=== PATIENT | female | born 1985 | race Caucasian/White ===

== ENCOUNTER 2019-10-15 20:41 | Inpatient (IN) | payer OTHER ==
[2019-10-15 20:50] VITALS: BMI 25.7
[2019-10-15] MEDS ORDERED: SODIUM CHLORIDE 0.9% 1000 ML INFUS.BAG IV ONE (21:45)
--- NOTE | 2019-10-15 21:56 | PDOC ---
History of Present Illness - General Chief Complaint: Pain, Acute Stated Complaint: ABD/ BACK PAIN Time Seen by Provider: 10/15/19 21:07 History Source: Spouse Exam Limitations: Language Barrier - History of Present Illness Initial Comments: Kathy Galindo is a 34 F with no known significant PMH, [id number], 1 ectopic, 14 weeks , LMP july 08, presents with RLQ pain for 1 day. Patient reports that the pain started this morning suddenly, episodic in nature, sharp pain, 8/10, radiating to the right flank and back, worse with any movements, non relieving. 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 She was told that the antibiotic was not helping her and changed to a stronger antibiotic(does not know the name), but she did not take the new antibiotic. Patient denies any nausea, vomiting, fever, chills, chest pain, SOB, edema, vaginal discharge/bleeding, dysuria, hematuria, constipation, diarrhea, weakness, or focal neurological deficits. 10/15/19 21:46 Past History - Travel History Traveled outside of the country in the last 30 days: No - Medical History Allergies/Adverse Reactions: Allergies Allergy/AdvReac Type Severity Reaction Status Date / Time No Known Allergies Allergy Verified 08/22/19 17:08 Home Medications: Ambulatory Orders NK [No Known Home Medication] 10/16/19 COPD: No - Surgical History Abdominal Surgery: Yes ( x1) Cholecystectomy: Yes - Reproductive History Is Patient Now?: Yes - Psycho-Social/Smoking History Smoking History: Never smoked - Substance Abuse Hx (Audit-C & DAST Scrn) How often the patient has a drink containing alcohol: Never Score: In Men: 4 or > Positive; In Women: 3 or > Positive: 0 Screen Result (Pos requires Nsg. Audit-10AR): Negative In the last yr the pt used illegal drug/Rx for NonMed reason: No Score: Yes response is considered Positive: 0 Screen Result (Positive result requires Nsg. DAST-10): Negative Review of Systems - Review of Systems Able to Perform ROS?: Yes Is the patient limited Greenlandic proficient: Yes Constitutional: No: Chills, Fever, Weakness HEENTM: No: Blurred Vision, Throat Pain, Throat Swelling, Difficulty Swallowing Respiratory: No: Cough, Shortness of Breath Cardiac (ROS): No: Chest Pain, Edema, Palpitations, Syncope ABD/GI: No: Constipated, Diarrhea, Nausea, Vomiting : Yes: Flank Pain. No: Burning, Dysuria, Discharge, Hematuria Musculoskeletal: Yes: Back Pain (lower back pain) Integumentary: No: Change in Color *Physical Exam - Vital Signs Last Vital Signs Temp Pulse Resp BP Pulse Ox 97.3 F L 90 19 113/95 99 10/15/19 20:44 10/15/19 20:44 10/15/19 20:44 10/15/19 20:44 10/15/19 20:44 - Physical Exam General Appearance: No: Apparent Distress HEENT: positive: EOMI, JARET. negative: Nasal Congestion, Rhinorrhea Neck: positive: Supple. negative: Tender, Carotid bruit Respiratory/Chest: positive: Lungs Clear, Normal Breath Sounds. negative: Respiratory Distress, Crackles, Rales, Rhonchi Cardiovascular: positive: Regular Rhythm, Regular Rate, S1, S2. 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 - CBC, CMP - UA, Urine culture - IVF NS 100mls - Kidney/renal US - Transvaginal US preg 10/15/19 22:00 Discharge - Discharge Information Problems reviewed: Yes Clinical Impression/Diagnosis: UTI (urinary tract infection) during , Pyelonephritis Condition: Stable - Follow up/Referral - Patient Discharge Instructions - Post Discharge Activity
[2019-10-15 22:06] LABS: BASO % 0.3 % (0-2.0); EOS % 0.5 % (0-4.5); HEMATOCRIT 36.5 % (32.4-45.2); HEMOGLOBIN 12.8 GM/dL (10.7-15.3); LYMPH % 20.2 % (8-40); MCH 32.5 pg (25.7-33.7); MCHC 35.1 g/dl (32.0-36.0); MEAN CELL VOLUME 92.6 fl (80-96); MEAN PLT VOLUME 9.6 fl (7.5-11.1); MONO % 9.3 % (3.8-10.2); NEUT % 69.7 % (42.8-82.8); PLATELET COUNT 184 K/MM3 (134-434); RBC 3.94 M/mm3 (3.60-5.2); RDW 13.3 % (11.6-15.6); WHITE BLOOD COUNT 7.5 K/mm3 (4.0-10.0)
[2019-10-15 22:11] LABS: EPI CELLS >36 /uL (0-25.1); HYALINE CASTS 3 /uL (0-3.1); URINE APPEARANCE CLOUDY; URINE BACTERIA 1243 /uL (0-1359); URINE BILIRUBIN NEGATIVE (NEGATIVE); URINE COLOR YELLOW; URINE GLUCOSE (UA) NEGATIVE (NEGATIVE); URINE KETONE NEGATIVE (NEGATIVE); URINE LEUK ESTERASE 1+ (NEGATIVE); URINE NITRITE NEGATIVE (NEGATIVE); URINE PROTEIN NEGATIVE (NEGATIVE); URINE RBC 41 /uL (0-23.9); URINE UROBILINOGEN 0.2 mg/dL (0.2-1.0); URINE WBC 118 /uL (0-25.8)
[2019-10-15] MEDS ORDERED: CEFTRIAXONE 1 GM in DEXTROSE 5%-WATER - 100 ML IVPB ONE (22:30)
[2019-10-15] MEDS ORDERED: CEFTRIAXONE 1 GM/50 ML BAG ONE (22:33)
[2019-10-15 22:39] LABS: BILIRUBIN,TOTAL 0.2 mg/dL (0.2-1); BLOOD UREA NITROGEN 5.8 mg/dL (7-18); CALCIUM 9.2 mg/dL (8.5-10.1); CREATININE 0.5 mg/dL (0.55-1.3); POTASSIUM 3.6 mmol/L (3.5-5.1); TOT PROT 6.4 g/dl (6.4-8.2)
--- NOTE | 2019-10-16 00:15 | PDOC ---
Documentation entered by Adele Ruth SCRIBE, acting as scribe for Radha Aranda DO. Radha Aranda DO: This documentation has been prepared by the Faraz shepard Brenda, SCRIBE, under my direction and personally reviewed by me in its entirety. I confirm that the documentation accurately reflects all work, treatment, procedures, and medical decision making performed by me. Attending Attestation - Resident Resident Name: Lynn Abdi - ED Attending Attestation I have performed the following: I have examined & evaluated the patient, The case was reviewed & discussed with the resident, I agree w/resident's findings & plan, Exceptions are as noted - HPI HPI: 10/15/19 22:58 The patient is a 34 year old female (A5), 1 ectopic with no significant PMH who presents to the emergency department for evaluation of 1 day of sudden onset right lower quadrant pain. Patient notes that the pain began this morning and was relieved with tyelenol but then returned at 6:00pm.Patient notes that the pain is sharp 8/10 and radiating to the right flank and back, and is worsened by movements. Reports being treated with a 5 day course of penicillins last week for an UTI by her PAD MACHINE OFFBEARER. The patient denies chest pain, shortness of breath, headache and dizziness. Denies fever, chills, cough, nausea, vomiting, diarrhea and constipation. Denies dysuria, frequency, urgency and hematuria. Denies history of kidney stones. Allergies: NKDA PCP: Hi Deleon - Physicial Exam PE: 10/15/19 23:04 GENERAL: Awake, alert, and fully oriented, in no acute distress HEAD: No signs of trauma EYES: PERRLA, EOMI, sclera anicteric, conjunctiva clear ENT: Auricles normal inspection, hearing grossly normal, nares patent, oropharynx clear without exudates. Moist mucosa NECK: Normal ROM, supple, no lymphadenopathy, JVD, or masses LUNGS: Breath sounds equal, clear to auscultation bilaterally. No wheezes, and no crackles HEART: Regular rate and rhythm, normal S1 and S2, no murmurs, rubs or gallops ABDOMEN: (+) Right flank tenderness to palpation. Soft, normoactive bowel sounds. No guarding, no rebound. No masses. No CVA tenderness. EXTREMITIES: Normal range of motion, no edema. No clubbing or cyanosis. No cords, erythema, or tenderness NEUROLOGICAL: Cranial nerves II through XII grossly intact. Normal speech, normal gait SKIN: Warm, Dry, normal turgor, no rashes lesions noted. - Medical Decision Making 10/16/19 00:09 a/p: at 14 weeks gestation with dysuria, urinary freq -pt with R flank pain -was on penicillin for 5 days, finished recently -concern for persistent uti despite abx -will send labs, renal ultrasound -ultrasound of the fetus -will send labs 10/16/19 00:13 no f/c -iup with fhr 148 pending official ultrasound read -pt with uti on labs no fevers no elevated wbc 10/16/19 00:13 iv abx ordered will need admission for failed outpt abx 10/16/19 00:19 normal renal ultrasound 10/16/19 00:22 microblog sent for admission to [facility] Discharge - Discharge Information Problems reviewed: Yes Clinical Impression/Diagnosis: UTI (urinary tract infection) during , Pyelonephritis Condition: Stable - Admission Yes - Follow up/Referral - Patient Discharge Instructions - Post Discharge Activity
--- NOTE | 2019-10-16 00:20 | PDOC ---
*Physical Exam - Vital Signs Last Vital Signs Temp Pulse Resp BP Pulse Ox 97.3 F L 90 19 113/95 99 10/15/19 20:44 10/15/19 20:44 10/15/19 20:44 10/15/19 20:44 10/15/19 20:44 ED Treatment Course - LABORATORY CBC & Chemistry Diagram: 10/15/19 21:50 10/15/19 21:50 - ADDITIONAL ORDERS Additional order review: Laboratory Results 10/15/19 10/15/19 10/15/19 22:10 21:50 21:48 Sodium 140 Potassium 3.6 Chloride 108 H Carbon Dioxide 25 Anion Gap 6 L BUN 5.8 L Creatinine 0.5 L Est GFR (CKD-EPI)AfAm 147.38 Est GFR (CKD-EPI)NonAf 127.16 Random Glucose 104 Calcium 9.2 Total Bilirubin 0.2 AST 20 ALT 24 Alkaline Phosphatase 65 Total Protein 6.4 Albumin 3.0 L Beta HCG, Quant 26285.8 Urine Color Yellow Urine Appearance Cloudy Urine pH 6.0 Ur Specific [place] 1.014 Urine Protein Negative Urine Glucose (UA) Negative Urine Ketones Negative Urine Blood Negative Urine Nitrite Negative Urine Bilirubin Negative Urine Urobilinogen 0.2 Ur Leukocyte Esterase 1+ H Urine WBC (Auto) 118 Urine RBC (Auto) 41 Urine Casts (Auto) 3 U Epithel Cells (Auto) >36 Urine Bacteria (Auto) 1243 Blood Type A POSITIVE Antibody Screen Negative 10/15/19 21:50 RBC 3.94 MCV 92.6 MCHC 35.1 RDW 13.3 MPV 9.6 Neutrophils % 69.7 Lymphocytes % 20.2 D Monocytes % 9.3 Eosinophils % 0.5 Basophils % 0.3 - Medications Given in the ED: ED Medications Discontinued Medications Generic Name Dose Route Start Last Admin Trade Name Freq PRN Reason Stop Dose Admin Ceftriaxone Sodium 1 gm/ 100 mls @ 200 mls/hr 10/15/19 22:30 10/15/19 22:44 Dextrose IVPB 10/15/19 22:59 200 mls/hr ONCE ONE Administration Sodium Chloride 1,000 ml 10/15/19 21:45 10/15/19 21:52 Normal Saline - IV 10/15/19 21:46 1,000 ml ONCE ONE Administration Medical Decision Making - Medical Decision Making 10/16/19 00:10 34 F with no known significant PMH, [id number], 1 ectopic, 14 weeks , LMP july 08, presents with RLQ pain for 1 day. Treated with PCN x5 days for UTI. PE notable for suprapubic and CVA tenderness. Labs notable for UTI. [] kidney and transvaginal US preg to r/o infected stone, abnormalities Needs rocephin and admission for UTI failing outpatient abx. PCP - [facility] US: normal kidneys Transvaginal US: [id number] no abnormalities Admit Discharge - Discharge Information Problems reviewed: Yes Clinical Impression/Diagnosis: UTI (urinary tract infection) during , Pyelonephritis Condition: Stable - Admission Yes - Follow up/Referral - Patient Discharge Instructions - Post Discharge Activity
--- NOTE | 2019-10-16 01:28 | PN ---
Teaching Attending Note Name of Resident: Alysia Sorensen ATTENDING PHYSICIAN STATEMENT I saw and evaluated the patient. I reviewed the resident's note and discussed the case with the resident. I agree with the resident's findings and plan as documented. SUBJECTIVE: 34 years old F ( A5) with no significant past medical history presented to hospital with sudden onset right lower quadrant pain radiating ti R sided back. Pain started this morning, intermittent, partially relieved by tylenol. she also c/o dysuria and chills for the same duration. She had UTI She denies nausea,vomiting,fever. OBJECTIVE: Last Vital Signs Temp Pulse Resp BP Pulse Ox 97.3 F L 90 19 113/95 99 10/15/19 20:44 10/15/19 20:44 10/15/19 20:44 10/15/19 20:44 10/15/19 20:44 GENERAL: Awake, alert, and fully oriented, in no acute distress HEAD: No signs of trauma EYES: PERRLA, EOMI, sclera anicteric, conjunctiva clear ENT: Auricles normal inspection, hearing grossly normal, nares patent, oropharynx clear without exudates. Moist mucosa NECK: Normal ROM, supple, no lymphadenopathy, JVD, or masses LUNGS: Breath sounds equal, clear to auscultation bilaterally. No wheezes, and no crackles HEART: Regular rate and rhythm, normal S1 and S2, no murmurs, rubs or gallops ABDOMEN: . Soft,RLQ tenderness with R CVA tenderness normoactive bowel sounds. No guarding, no rebound. No masses. No CVA tenderness. EXTREMITIES: Normal range of motion, no edema. No clubbing or cyanosis. No cords, erythema, or tenderness NEUROLOGICAL: Cranial nerves II through XII grossly intact. Normal speech, normal gait SKIN: Warm, Dry, normal turgor, no rashes lesions noted. ASSESSMENT AND PLAN: UTI in possible R pyelonephritis Admit to floor IV hydration IV ceftriaxone 1 gram daily urine culture blood culture renal sono done. follow official report ALL SOURCE COLLECTION MANAGER consult as she is Resume home meds Analgesia when needed - tylenol DVT ppx
[2019-10-16] MEDS ORDERED: ACETAMINOPHEN 325 MG TABLET (FP) PO PRN (01:56)
[2019-10-16] MEDS ORDERED: SODIUM CHLORIDE 1,000 ML IV SCH (02:00)
--- NOTE | 2019-10-16 02:21 | PN ---
Physical Exam: SUBJECTIVE: Patient seen and examined OBJECTIVE: Vital Signs Period Temp Pulse Resp BP Sys/Thomas Pulse Ox Last 24 Hr 97.3 F 90 19 113/95 99 GENERAL: The patient is awake, alert, and fully oriented, in obvious painful distress. HEAD: Normal with no signs of trauma. EYES:EOMI, sclera anicteric, conjunctiva clear. ENT: Ears normal NECK: full range of motion, supple, no lymphadenopathy LUNGS: vesicular Breath sounds equal and b/l, clear to auscultation bilaterally, no wheezes, no crackles,no obvious sign of respiratory distress HEART: Regular rate and rhythm, S1, S2 without murmur, rub or gallop. ABDOMEN: Soft, normoactive bowel sounds, Rt. iliac and CVA tenderness EXTREMITIES: 2+ pulses, warm, well-perfused, no edema. NEUROLOGICAL: Cranial nerves II through XII grossly intact. Normal speech PSYCH: Normal mood, normal affect. SKIN: Warm, dry, normal turgor, no rashes or lesions noted Laboratory Results - last 24 hr 10/15/19 10/15/19 10/15/19 21:48 21:50 21:50 WBC 7.5 RBC 3.94 Hgb 12.8 Hct 36.5 D MCV 92.6 MCH 32.5 MCHC 35.1 RDW 13.3 Plt Count 184 D MPV 9.6 Absolute Neuts (auto) 5.2 Neutrophils % 69.7 Lymphocytes % 20.2 D Monocytes % 9.3 Eosinophils % 0.5 Basophils % 0.3 Nucleated RBC % 0 Sodium 140 Potassium 3.6 Chloride 108 H Carbon Dioxide 25 Anion Gap 6 L BUN 5.8 L Creatinine 0.5 L Est GFR (CKD-EPI)AfAm 147.38 Est GFR (CKD-EPI)NonAf 127.16 Random Glucose 104 Calcium 9.2 Total Bilirubin 0.2 AST 20 ALT 24 Alkaline Phosphatase 65 Total Protein 6.4 Albumin 3.0 L Beta HCG, Quant 03785.8 Urine Color Yellow Urine Appearance Cloudy Urine pH 6.0 Ur Specific [place] 1.014 Urine Protein Negative Urine Glucose (UA) Negative Urine Ketones Negative Urine Blood Negative Urine Nitrite Negative Urine Bilirubin Negative Urine Urobilinogen 0.2 Ur Leukocyte Esterase 1+ H Urine WBC (Auto) 118 Urine RBC (Auto) 41 Urine Casts (Auto) 3 U Epithel Cells (Auto) >36 Urine Bacteria (Auto) 1243 Blood Type Antibody Screen 10/15/19 22:10 WBC RBC Hgb Hct MCV MCH MCHC RDW Plt Count MPV Absolute Neuts (auto) Neutrophils % Lymphocytes % Monocytes % Eosinophils % Basophils % Nucleated RBC % Sodium Potassium Chloride Carbon Dioxide Anion Gap BUN Creatinine Est GFR (CKD-EPI)AfAm Est GFR (CKD-EPI)NonAf Random Glucose Calcium Total Bilirubin AST ALT Alkaline Phosphatase Total Protein Albumin Beta HCG, Quant Urine Color Urine Appearance Urine pH Ur Specific [place] Urine Protein Urine Glucose (UA) Urine Ketones Urine Blood Urine Nitrite Urine Bilirubin Urine Urobilinogen Ur Leukocyte Esterase Urine WBC (Auto) Urine RBC (Auto) Urine Casts (Auto) U Epithel Cells (Auto) Urine Bacteria (Auto) Blood Type A POSITIVE Antibody Screen Negative Active Medications Generic Name Dose Route Start Last Admin Trade Name Freq PRN Reason Stop Dose Admin Acetaminophen 650 mg 10/16/19 01:56 Tylenol - PO Q4H PRN PAIN LEVEL 1-5 Heparin Sodium (Porcine) 5,000 unit 10/16/19 02:00 Heparin - SQ Q8H-IV ELAINE Sodium Chloride 1,000 mls @ 42 mls/hr 10/16/19 02:00 Normal Saline - IV ASDIR ELAINE ASSESSMENT/PLAN: # RIGHT PYELONEPHRITIS Dysuria RLQ pain radiating to the back Hx of UTI 6 weeks ago +Rt CVA tenderness Admit med surg IV ceftriaxone 1g x 7-10days Urine culture stat Blood culture Renal US Gentle hydration N/S 42cc/hr Tylenol 650 prn on pain scale 1-5 Repeat urine culture 1-2 weeks after treatment to confirm organism eradication OBGYN consult # Possible Renal stones Cyesis 14wks GA Rt. lower quadrant pain Hx of gallstones in childhood hX Recurrent UTI Dysuria ATTENDING PHYSICIAN STATEMENT I saw and evaluated the patient. I reviewed the resident's note and discussed the case with the resident. I agree with the resident's findings and plan as documented. SUBJECTIVE: OBJECTIVE: ASSESSMENT AND PLAN:
[2019-10-16] MEDS ORDERED: ONDANSETRON 4 MG/2 ML VIAL IVPUSH ONE (02:53)
--- NOTE | 2019-10-16 06:02 | HP ---
CHIEF COMPLAINT: RLQ PAIN X 3Days PCP: Cary Bates HISTORY OF PRESENT ILLNESS: Patient is Aborta 6 at 14wks of cyesis with a past medical hx of UTI rx with penicillin 6weeks ago and now presenting with RLQ x 3days. It was gradual in onset, worsened yesterday, mildly relived by tylenol, sharp in nature, radiates to the rt flank with 8/10 severity. There is a hx of UTI 6weeks ago that was treated with penicillin by her gage maker and a hx of gall bladder stones in childhood(11yrs of age). There is associated dysuria and chills but no hematuria, urgency, passage of stones. However, patient deniesconstipation, N/V/diarrhea , foul smelling greasy stool,jaundice, bone or muscle pain, chest pain, sob, cough, TINEO, dizziness. ER course was notable for: (1) Ceftraxione 1g stat (2) IVFN/S (3) Renal USS (4)Transvirginal uss to confirm status REVIEW OF SYSTEMS: Negative except as above Recent Travel: NONE PAST MEDICAL HISTORY:Depression, not currently on meds, was treated in the past PAST SURGICAL HISTORY: Gall bladder surg at 11yrs of age FHx: DM in her father Social History: Smoking: None Alcohol:None Drugs:None Allergies: None known to food, meds or late Gynae hx: LMP: A6 with 1 ectopic. Attending care with an OBGYN Hx of STD: None Sexually active with one partner, no contraceptive use Insurance: Yes Immunization: Not sure of her immunization hx Vital Signs - 24 hr 10/15/19 10/16/19 10/16/19 20:44 02:35 02:54 Temperature 97.3 F L 97.6 F Pulse Rate 90 71 Pulse Rate [ 80 Apical] Respiratory 19 18 16 Rate Blood Pressure 113/95 110/73 Blood Pressure 110/80 [Left Arm] O2 Sat by Pulse 99 99 97 Oximetry (%) PHYSICAL EXAMINATION: GENERAL: The patient is awake, alert, and fully oriented, in obvious painful distress. HEAD: Normal with no signs of trauma. EYES:EOMI, sclera anicteric, conjunctiva clear. ENT: Ears normal NECK: full range of motion, supple, no lymphadenopathy LUNGS: vesicular Breath sounds equal and b/l, clear to auscultation bilaterally, no wheezes, no crackles,no obvious sign of respiratory distress HEART: Regular rate and rhythm, S1, S2 without murmur, rub or gallop. ABDOMEN: Soft, normoactive bowel sounds, Rt. iliac and CVA tenderness EXTREMITIES: 2+ pulses, warm, well-perfused, no edema. NEUROLOGICAL: Cranial nerves II through XII grossly intact. Normal speech PSYCH: Normal mood, normal affect. SKIN: Warm, dry, normal turgor, no rashes or lesions noted Laboratory Results - last 24 hr 10/15/19 10/15/19 10/15/19 21:48 21:50 21:50 WBC 7.5 RBC 3.94 Hgb 12.8 Hct 36.5 D MCV 92.6 MCH 32.5 MCHC 35.1 RDW 13.3 Plt Count 184 D MPV 9.6 Absolute Neuts (auto) 5.2 Neutrophils % 69.7 Lymphocytes % 20.2 D Monocytes % 9.3 Eosinophils % 0.5 Basophils % 0.3 Nucleated RBC % 0 Sodium 140 Potassium 3.6 Chloride 108 H Carbon Dioxide 25 Anion Gap 6 L BUN 5.8 L Creatinine 0.5 L Est GFR (CKD-EPI)AfAm 147.38 Est GFR (CKD-EPI)NonAf 127.16 Random Glucose 104 Calcium 9.2 Total Bilirubin 0.2 AST 20 ALT 24 Alkaline Phosphatase 65 Total Protein 6.4 Albumin 3.0 L Beta HCG, Quant 89067.8 Urine Color Yellow Urine Appearance Cloudy Urine pH 6.0 Ur Specific [place] 1.014 Urine Protein Negative Urine Glucose (UA) Negative Urine Ketones Negative Urine Blood Negative Urine Nitrite Negative Urine Bilirubin Negative Urine Urobilinogen 0.2 Ur Leukocyte Esterase 1+ H Urine WBC (Auto) 118 Urine RBC (Auto) 41 Urine Casts (Auto) 3 U Epithel Cells (Auto) >36 Urine Bacteria (Auto) 1243 Blood Type Antibody Screen 10/15/19 22:10 WBC RBC Hgb Hct MCV MCH MCHC RDW Plt Count MPV Absolute Neuts (auto) Neutrophils % Lymphocytes % Monocytes % Eosinophils % Basophils % Nucleated RBC % Sodium Potassium Chloride Carbon Dioxide Anion Gap BUN Creatinine Est GFR (CKD-EPI)AfAm Est GFR (CKD-EPI)NonAf Random Glucose Calcium Total Bilirubin AST ALT Alkaline Phosphatase Total Protein Albumin Beta HCG, Quant Urine Color Urine Appearance Urine pH Ur Specific [place] Urine Protein Urine Glucose (UA) Urine Ketones Urine Blood Urine Nitrite Urine Bilirubin Urine Urobilinogen Ur Leukocyte Esterase Urine WBC (Auto) Urine RBC (Auto) Urine Casts (Auto) U Epithel Cells (Auto) Urine Bacteria (Auto) Blood Type A POSITIVE Antibody Screen Negative ASSESSMENT/PLAN: Patient is Aborta 6 at 14wks of cyesis with a past medical hx of UTI rx with penicillin 6weeks ago and now presenting with RLQ x 3days. # RIGHT PYELONEPHRITIS Dysuria RLQ pain radiating to the back Hx of UTI 6 weeks ago +Rt CVA tenderness Admit med surg IV ceftriaxone 1g x 7-10days Urine culture stat Blood culture Renal US Gentle hydration N/S 42cc/hr Tylenol 650 prn on pain scale 1-5 Repeat urine culture 1-2 weeks after treatment to confirm organism eradication considering status OBGYN consult # Possible Renal stones Cyesis 14wks GA Rt. lower quadrant pain Hx of gallstones in childhood hX Recurrent UTI Dysuria RLQ pain Possibly complicated by rt. pyelonephritis IV ceftriaxone 1g x 7-10days Urine culture stat Blood culture Renal US Gentle hydration N/S 42cc/hr Tylenol 650 prn on pain scale 1-5 Possible consult to urologist if diagnosed of nephrolithiasis # DISPOSITION: FEN: Admit Med Surg Covid-19 viral PCR for screening Normal meals and liberal fluid intake Continue Ceftriaxone as prescribed Continue to monitor Mg, PO4 and replenish fluid as appropriate DVT prophylaxis: Heparin 5000iu tid Visit type - Emergency Visit Emergency Visit: Yes ED Registration Date: 10/16/19 Care time: The patient presented to the Emergency Department on the above date and was hospitalized for further evaluation of their emergent condition. - New Patient This patient is new to me today: Yes Date on this admission: 10/16/19 - Critical Care Critical Care patient: No ATTENDING PHYSICIAN STATEMENT I saw and evaluated the patient. I reviewed the resident's note and discussed the case with the resident. I agree with the resident's findings and plan as documented. SUBJECTIVE: OBJECTIVE: ASSESSMENT AND PLAN:
[2019-10-16] MEDS: HEPARIN NA (PORCINE) 5,000 UNITS/ML 1ML VIAL SQ SCH ×3 (06:32→21:41)
[2019-10-16 07:41] LABS: BASO % 0.1 % (0-2.0); EOS % 0.3 % (0-4.5); HEMATOCRIT 33.3 % (32.4-45.2); HEMOGLOBIN 11.7 GM/dL (10.7-15.3); LYMPH % 13.2 % (8-40); MCH 32.8 pg (25.7-33.7); MCHC 35.1 g/dl (32.0-36.0); MEAN CELL VOLUME 93.4 fl (80-96); MEAN PLT VOLUME 10.1 fl (7.5-11.1); MONO % 6.2 % (3.8-10.2); NEUT % 80.2 % (42.8-82.8); PLATELET COUNT 156 K/MM3 (134-434); RBC 3.56 M/mm3 (3.60-5.2); RDW 13.5 % (11.6-15.6); WHITE BLOOD COUNT 9.4 K/mm3 (4.0-10.0)
[2019-10-16 07:51] LABS: ALBUMIN 2.7 g/dl (3.4-5.0); BILIRUBIN,TOTAL 0.3 mg/dL (0.2-1); BLOOD UREA NITROGEN 5.2 mg/dL (7-18); CALCIUM 8.4 mg/dL (8.5-10.1); CREATININE 0.4 mg/dL (0.55-1.3); MAGNESIUM 1.8 mg/dL (1.8-2.4); PHOSPHOROUS 3.3 mg/dL (2.5-4.9); POTASSIUM 3.7 mmol/L (3.5-5.1); TOT PROT 5.8 g/dl (6.4-8.2)
[2019-10-16] MEDS ORDERED: cefTRIAXone SODIUM 1 GM VIAL ONE (08:47)
[2019-10-16] MEDS ORDERED: DEXTROSE 5%-WATER - 50 ML IVPB ONE (08:48)
[2019-10-16] MEDS: CEFTRIAXONE 1 GM in DEXTROSE 5%-WATER - 50 ML IVPB SCH (09:02)
--- NOTE | 2019-10-16 11:23 | PN ---
Progress Note (short form) - Note Progress Note: patient is patient from [facility] group They come to [facility]. I informed Dr Miranda lactation coordinator for the group for the above patient . please place official consult for Dr Miranda
--- NOTE | 2019-10-16 14:03 | CON.OBG ---
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 Reason for Consultation:: pyelonephritis - History Source History Provided By: Patient Limitations to Obtaining History: No Limitations - Past Medical History ...LMP: 07/09/19 ...: Yes - Alcohol/Substance Use Hx Alcohol Use: No - Smoking History Smoking history: Never smoked Home Medications - Allergies Allergies/Adverse Reactions: Allergies Allergy/AdvReac Type Severity Reaction Status Date / Time No Known Allergies Allergy Verified 08/22/19 17:08 - Home Medications Home Medications: Ambulatory Orders NK [No Known Home Medication] 10/16/19 Review of Systems - Review of Systems Constitutional: reports: No Symptoms Cardiovascular: reports: No Symptoms Respiratory: reports: No Symptoms Gastrointestinal: reports: No Symptoms Genitourinary: reports: Flank Pain Breasts: reports: No Symptoms Reported Musculoskeletal: reports: No Symptoms Neurological: reports: No Symptoms Psychiatric: reports: No Symptoms 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 Vital Signs: Vital Signs Temperature 98.1 F 10/16/19 08:06 Pulse Rate 69 10/16/19 08:06 Respiratory Rate 16 10/16/19 08:23 Blood Pressure 92/48 L 10/16/19 08:06 O2 Sat by Pulse Oximetry (%) 98 10/16/19 08:23 Constitutional: Yes: No Distress, Calm Cardiovascular: Yes: Regular Rate and Rhythm Respiratory: Yes: Regular, CTA Bilaterally Gastrointestinal: Yes: Normal Bowel Sounds, Soft Renal/: Yes: CVA Tenderness - Right Pelvis: Yes: WNL External Genitalia: Yes: Normal Uterus: Yes: Enlarged (14 weeks) Musculoskeletal: Yes: WNL Extremities: Yes: WNL Edema: No Neurological: Yes: Alert, Oriented Psychiatric: Yes: Alert, Oriented Labs: CBC, BMP 10/16/19 06:25 10/16/19 06:25 Assessment/Plan 34 y/o F at 14+ weeks gestation admitted with pyelonephritis. care with Dr. Andrea who states patient had positive E. coli on urine culture in office this week, sensitive to cephalosporins Afebrile, no leukocytosis, patient initially with symptoms of dysuria, R flank pain and lower abdominal discomfort which have almost completely resolved Plan: Continue IV antibiotics overnight May be discharged in AM Rx PO antibiotics upon discharge heart rate check prior to discharge F/u visit with Dr. Andrea next week
--- NOTE | 2019-10-16 14:36 | PN ---
Teaching Attending Note Name of Resident: Torsten Lomas ATTENDING PHYSICIAN STATEMENT I saw and evaluated the patient. I reviewed the resident's note and discussed the case with the resident. I agree with the resident's findings and plan as documented. SUBJECTIVE: Seen and examined at bedside. Patient's abdominal and flank pain is resolved. No complaints at this time. Denies fevers, chills, nausea, vomiting, diarrhea. Attempting to pain outpatient urine cultures and sensitivities OBJECTIVE: Last Vital Signs Temp Pulse Resp BP Pulse Ox 98.1 F 69 16 92/48 L 98 10/16/19 08:06 10/16/19 08:06 10/16/19 08:23 10/16/19 08:06 10/16/19 08:23 PE: Per resident note Labs/Imaging: reviewed ASSESSMENT AND PLAN: 34-year-old female 15-week female who recently was treated for UTI as an outpatient with penicillin presents with right-sided abdominal pain and right flank pain. #Right-sided abdominal pain and right flank pain: Resolved Low clinical concern for pyelonephritis. Patient does not have fevers, elevated white count, and urinalysis here is contaminated. Abd flank pain resolved overnight after 1 dose of ceftriaxone. Renal ultrasound without signs of inflammation PIANO ASSEMBLER consulted for alternate differentials: They believe it is pyelonephritis Obtaining sensitivities from outpatient urinalysis We will continue ceftriaxone today Follow-up cultures
[2019-10-17] MEDS: HEPARIN NA (PORCINE) 5,000 UNITS/ML 1ML VIAL SQ SCH (06:30)
[2019-10-17] MEDS ORDERED: cefTRIAXone SODIUM 1 GM VIAL ONE (08:57)
[2019-10-17] MEDS ORDERED: DEXTROSE 5%-WATER - 50 ML IVPB ONE (08:57)
[2019-10-17] MEDS: CEFTRIAXONE 1 GM in DEXTROSE 5%-WATER - 50 ML IVPB SCH (09:24)
--- NOTE | 2019-10-17 12:10 | DS ---
Physical Examination Vital Signs: Vital Signs Temperature 98.2 F 10/17/19 05:49 Pulse Rate 69 10/17/19 05:49 Respiratory Rate 16 10/17/19 05:49 Blood Pressure 91/55 L 10/17/19 05:49 O2 Sat by Pulse Oximetry (%) 99 10/17/19 05:49 Constitutional: Yes: Well Nourished, No Distress, Calm HENT: Yes: WNL, Atraumatic, Normocephalic Cardiovascular: Yes: WNL, Regular Rate and Rhythm Respiratory: Yes: Regular, CTA Bilaterally Gastrointestinal: Yes: Normal Bowel Sounds, Soft Extremities: Yes: WNL Edema: No Neurological: Yes: WNL, Alert, Oriented Psychiatric: Yes: WNL Labs: CBC, BMP 10/16/19 06:25 10/16/19 06:25 Discharge Summary Problems reviewed: Yes Reason For Visit: PYELONEPHRITIS, URINARY TRACT INFECTION IN MOTHER Current Active Problems Pyelonephritis (Acute) UTI (urinary tract infection) during (Acute) Hospital Course: 34-year-old female 15-week female who recently was treated for UTI as an outpatient with penicillin presents with right-sided abdominal pain and right flank pain. Patiently was initially diagnosed with pyelonephritis, however patient did not have a white count, left shift, fever, and urinalysis was contaminated. US did not show any pyelonephritis. Urine culture in hospital returned negative. Flank/abdominal pain resolved shortly after first dose of abx on day of admission. A pelvic ultrasound showed a intrauterine approximately 15 weeks. Outpatient urinalysis showed 50,000 colonies of E. coli sensitive to ceftriaxone. Patient received 3 days of ceftriaxone as an inpatient. Patient does not require further treatment with antibiotics and can follow-up with her yard hostler as an outpatient for further management. Condition: Stable - Instructions Diet, Activity, Other Instructions: You were admitted for abdominal pain and back pain in the setting of a recent urinary tract infection. There was concern that you had an infection in your kidney called pyelonephritis. Further testing shows that you did not have an infection in your kidney. You received 3 doses of IV antibiotics which should be sufficient to treat your urinary tract infection. You do not need to take any additional antibiotics. Please follow-up with your yard hostler in the next week for follow-up. Disposition: HOME - Home Medications Comprehensive Discharge Medication List: Ambulatory Orders NK [No Known Home Medication] 10/16/19 This patient is new to me today: No Emergency Visit: Yes ED Registration Date: 10/16/19 Care time: The patient presented to the Emergency Department on the above date and was hospitalized for further evaluation of their emergent condition. Critical Care patient: No - Discharge Referral Referred to [facility] Med P.C.: No
[2019-10-17 12:23] VITALS: BP 102/66; PULSE 87; TEMP 97.7
--- NOTE | 2019-10-17 12:36 | PN ---
Physical Exam: NOTE for 10/16/19 SUBJECTIVE: No overnight events. Patient seen and examined. Patient endorses that flank pain improved. Denies N/V/D & chills OBJECTIVE: Vital Signs Period Temp Pulse Resp BP Sys/Thomas Pulse Ox Last 24 Hr 97.5 F-98.2 F 69-87 16-18 91-105/55-66 97-100 GENERAL: The patient is awake, alert, and fully oriented, in no acute distress. HEENT: Normal with no signs of trauma. moist mucous membranes. LUNGS: Breath sounds equal, clear to auscultation bilaterally, no wheezes, no crackles, no accessory muscle use. HEART: Regular rate and rhythm, S1, S2 without murmur, rub or gallop. ABDOMEN: Soft, nontender, normoactive bowel sounds; NO CVA tenderness, gravid abdomen EXTREMITIES: 2+ pulses, warm, well-perfused, no edema. NEUROLOGICAL: Normal speech, gait not observed. PSYCH: Normal mood, normal affect. SKIN: Warm, dry, normal turgor, no rashes or lesions noted ASSESSMENT/PLAN: 34 YO F 15 wks gestation recently completed penicillin for outpt UTI treatment p/w RLQ pain & R flank pain. #RLQ & R flank pain -resolved overnight -Renal ultrasound: Normal kidneys with no evidence of nephrolithiasis, hydronephrosis or acute pathology -afebrile, WBCs WNL, UA contaminated with >36 epithelial cells, RLQ/flank pain resolved after one dose of ceftriaxone: unlikely pyelonephritis -ObGyn c/s appreciated. Suggested it is pyelonephritis. --Urine culture results from outpatient ObGyn, Dr. Andrea, shows 10,000-50,000 CFU/ml of E. Coli. RESISTANT to ampicillin, ciprofloxacin, levofloxacin. SENSITIVE to ceftriaxone. NAHOMY<1 -c/w ceftriaxone -f/u urine culture #DVT PPX Heparin 5000 sq TID #Dispo Maintain med surg Visit type - Emergency Visit Emergency Visit: Yes ED Registration Date: 10/16/19 Care time: The patient presented to the Emergency Department on the above date and was hospitalized for further evaluation of their emergent condition. - New Patient This patient is new to me today: No Date on this admission: 10/16/19 - Critical Care Critical Care patient: No ATTENDING PHYSICIAN STATEMENT I saw and evaluated the patient. I reviewed the resident's note and discussed the case with the resident. I agree with the resident's findings and plan as documented. SUBJECTIVE: OBJECTIVE: ASSESSMENT AND PLAN:
--- NOTE | 2019-10-19 10:56 | EKG ---
Test Reason : Blood Pressure : / mmHG Vent. Rate : 073 BPM Atrial Rate : 073 BPM P-R Int : 160 ms QRS Dur : 084 ms QT Int : 392 ms P-R-T Axes : 030 014 004 degrees QTc Int : 431 ms NORMAL SINUS RHYTHM NORMAL ECG NO PREVIOUS ECGS AVAILABLE Confirmed by Ariane Stewart ([id number]) on 10/19/2019 10:55:55 AM Referred By: Confirmed By:Ariane Stewatr
== END 2019-10-17 12:33 | disposition home or self-care (01) | DRG 566 ==
LOC: JER 20:41 → JERBED 10-16 00:21 → J7W 10-16 02:41
PROVIDERS: ADMIT Internal Medicine; ATTEND Internal Medicine
DX: O23.42 Unspecified infection of urinary tract in pregnancy, second trimester (principal); Z3A.15 15 weeks gestation of pregnancy
CPT/HCPCS: 36415; 76775-TC; 76815-TC; 80053; 81003; 83735; 84100; 84702; 85025; 86850; 86900; 86901; 87040; 87086; 93005; 93010; 99285-25; J1644; U0003